=== PATIENT | female | born 1980 | race Caucasian/White ===

== ENCOUNTER 2017-12-26 06:11 | Day surgery (SDC) | payer MEDICAID ==
[~2017-12-26] VITALS: Ht 165.1 cm; Wt 116.8 kg
[2017-12-26] MEDS ORDERED: PIPERACILLIN/TAZO/PMX 3.375GM 50 ML ONE (06:26)
[2017-12-26] MEDS ORDERED: SODIUM CHLORIDE 0.9% 1,000 ML IV ONE (06:30)
[2017-12-26] MEDS ORDERED: PIPERACILLIN/TAZO/PMX 3.375GM 50 ML IV ONE (06:30)
[2017-12-26] MEDS ORDERED: morphine SULFATE 10 MG/ML, 1ML IVPush ONE ×2 (07:00→09:00)
[2017-12-26] MEDS ORDERED: MORPHINE SULFATE 4 MG/ML, 1ML ONE (07:10)
[2017-12-26] MEDS ORDERED: BUDE90AE IH (07:25)
[2017-12-26] MEDS ORDERED: METF500T4 PO (07:25)
[2017-12-26] MEDS ORDERED: ALBU18HF IH (07:25)
[2017-12-26] MEDS ORDERED: BUPR-86 PO (07:25)
[2017-12-26 07:49] LABS: HCG UR SG 1.032 (1.003-1.030)
[2017-12-26] MEDS ORDERED: FENTANYL PF 100 MCG/2ML ONE ×2 (08:59→11:28)
[2017-12-26] MEDS ORDERED: MIDAZOLAM 1 MG/ML, 2ML ONE (08:59)
[2017-12-26 09:17] VITALS: BP 120/77
[2017-12-26] MEDS ORDERED: ONDANSETRON 2MG/ML, 2ML ONE (10:27)
[2017-12-26] MEDS ORDERED: DEXAMETHASONE 4 MG/ML, 1ML ONE (10:27)
[2017-12-26] MEDS ORDERED: PROPOFOL 10 MG/ML, 20ML ONE (10:27)
[2017-12-26] MEDS ORDERED: SUCCINYLCHOLINE 20 MG/ML, 10ML ONE (10:27)
[2017-12-26] MEDS ORDERED: BUPIVACAINE/PF-EPI 0.5% 1:200K IM ONE (10:49)
[2017-12-26] MEDS ORDERED: ACETAMINOPHEN 650 MG/20.3 ML UDC ONE (11:17)
[2017-12-26] MEDS ORDERED: OXYcodone 5 MG/5 ML ORAL.SOL UDC ONE (11:17)
[2017-12-26] MEDS ORDERED: ALBUTEROL SULFATE 2.5 MG/3 ML NPPB PRN (11:30)
[2017-12-26] MEDS ORDERED: ACETAMINOPHEN 325 MG TABLET PO PRN (11:30)
[2017-12-26] MEDS ORDERED: HYDROmorphone 1 MG/ML, 1ML IV PRN (11:30)
[2017-12-26] MEDS ORDERED: PROMETHAZINE 12.5 MG SUPP PR PRN (11:30)
[2017-12-26] MEDS ORDERED: FENTANYL PF 100 MCG/2ML IV PRN (11:30)
[2017-12-26] MEDS ORDERED: LORazepam 2 MG/ML, 1ML IVPush PRN (11:30)
[2017-12-26] MEDS ORDERED: PROMETHAZINE 25 MG/ML, 1ML IV PRN (11:30)
[2017-12-26] MEDS ORDERED: hydrALAzine 20 MG/ML, 1ML IV PRN (11:30)
[2017-12-26] MEDS ORDERED: morphine SULFATE 10 MG/ML, 1ML IV PRN (11:30)
[2017-12-26] MEDS ORDERED: METOPROLOL 1 MG/ML, 5ML IV PRN (11:30)
[2017-12-26] MEDS ORDERED: OXYcodone 5 MG/5 ML ORAL.SOL UDC PO PRN (11:30)
[2017-12-26] MEDS ORDERED: HYDR-3240 PO (12:58)
[2017-12-26] MEDS ORDERED: LACTATED RINGERS 1,000 ML IV SCH (13:00)
[2017-12-26] MEDS ORDERED: HYDROcodone/APAP 5/325 TABLET PO PRN (13:00)
[2017-12-26] MEDS ORDERED: ZOLPIDEM 10MG TABLET PO PRN (13:00)
[2017-12-26] MEDS ORDERED: morphine SULFATE 10 MG/ML, 1ML IVPush PRN (13:30)
[2017-12-26] MEDS ORDERED: PNEUMOCOCCAL 23 VACCINE IM-VACC ONE (13:30)
[2017-12-26 13:43] VITALS: BP 136/85
[2017-12-26] MEDS ORDERED: PREGABALIN 75 MG CAPSULE PO SCH (21:00)
[2017-12-26] MEDS ORDERED: ATORVASTATIN 10 MG TABLET PO SCH (21:00)
[2017-12-27] MEDS ORDERED: ATENOLOL 50 MG TABLET PO SCH (06:00)
[2017-12-27] MEDS ORDERED: HYDROCHLOROTHIAZIDE 12.5 MG CAPSULE PO SCH (09:00)
[2017-12-27] MEDS ORDERED: QUINAPRIL 20MG TABLET PO SCH (09:00)
[2017-12-27] MEDS ORDERED: POTASSIUM CHLORIDE 10 MEQ TABLET.ER PO SCH (09:00)
== END 2017-12-26 15:58 ==
LOC: ED 06:44 → UNDOADMIN 06:45 → EDIP 06:45 → 4NOR 08:13 → EDIP 08:13 → OR 10:59 → UNDODISIN 15:58 → OR 15:58
PROVIDERS: ATTEND Surgery
DX: N61.1 Abscess of the breast and nipple (principal); E11.9 Type 2 diabetes mellitus without complications; E66.01 Morbid (severe) obesity due to excess calories; F17.210 Nicotine dependence, cigarettes, uncomplicated; Z90.49 Acquired absence of other specified parts of digestive tract; Z98.890 Other specified postprocedural states
CPT/HCPCS: 81025; 87070; 87075; 87205; 90732; 96361; 96365; 96375; J1100; J2250; J2405; J2543; J2704; J3010; J7613; J0330; J2270; J7030

== ENCOUNTER 2020-08-03 08:29 | Emergency (ER) | payer BC, MEDICAID, OTHER ==
[~2020-08-03] VITALS: Ht 167.6 cm; Wt 112.8 kg
[~2020-08-03 08:29] MED LIST: ALBU18HF IH; BUDE90AE IH; BUPR-86 PO; HYDR-3240 PO; METF500T17 PO
[2020-08-03] MEDS ORDERED: ONDANSETRON 2MG/ML, 2ML IVPush ONE (09:00)
[2020-08-03] MEDS ORDERED: MORPHINE SULFATE 4 MG/ML, 1ML IVPush ONE ×2 (09:00→11:00)
[2020-08-03] MEDS ORDERED: METHOCARBAMOL 1,000 MG in DEXTROSE 5% 100 ML IV ONE (09:00)
[2020-08-03] MEDS ORDERED: KETOROLAC 30 MG/1 ML IVPush ONE (09:00)
[2020-08-03 09:15] LABS: BASOPHILS % (AUTO) 1 % (0-1); EOSINOPHILS % (AUTO) 5 % (1-7); LYMPHOCYTES % (AUTO) 25 % (22-44); MEAN CORPUSCULAR HEMOGLOBIN 32.2 pg (27.0-34.8); MEAN CORPUSCULAR HGB CONC 34.2 g/dL (32.4-35.8); MEAN PLATELET VOLUME 6.9 fL (7.4-10.4); MONOCYTES % (AUTO) 7 % (2-9); NEUTROPHILS % (AUTO) 62 % (42-75); PLATELET COUNT 358 x10^3/uL (130-400); RED BLOOD COUNT 4.63 x10^6/uL (3.82-5.3)
[2020-08-03 09:16] LABS: MD NO
[2020-08-03 09:23] LABS: ANION GAP 8 mmol/L (5-15); CALCIUM 8.7 mg/dL (8.5-10.1); CHLORIDE 107 mmol/L (98-107)
[2020-08-03] MEDS ORDERED: MORPHINE SULFATE 4 MG/ML, 1ML ONE ×2 (09:52→10:52)
[2020-08-03] MEDS ORDERED: ONDANSETRON 2MG/ML, 2ML ONE (09:52)
[2020-08-03] MEDS ORDERED: KETOROLAC 30 MG/1 ML ONE (09:52)
[2020-08-03 10:18] LABS: MICROSCOPIC NOT IND
--- NOTE | 2020-08-03 10:18 | NUR ---
PT IN HOSPITAL GOWN. PT PLACED ON VITALS MONITORS. IV STARTED. PT MEDICATED PER EMAR. AT BEDSIDE. CALL LIGHT WITHIN REACH. WILL CONTINUE TO MONITOR.
--- NOTE | 2020-08-03 10:55 | NUR ---
PT STATED STILL HAVING PAIN. ERP AWARE, VERBAL ORDER GIVEN. WILL MEDICATE PER EMAR.
--- NOTE | 2020-08-03 10:55 | NUR ---
PT STATED SHE HAD TEMPORARY RELIEF OF PAIN WITH FIRST ADMINISTERED MEDS.
[2020-08-03 11:56] VITALS: BP 117/73
== END 2020-08-03 11:58 | disposition home or self-care (01) ==
LOC: ED 09:00
DX: M54.5 Low back pain (principal); R10.2 Pelvic and perineal pain; R10.30 Lower abdominal pain, unspecified; F17.210 Nicotine dependence, cigarettes, uncomplicated; J45.909 Unspecified asthma, uncomplicated; Z90.89 Acquired absence of other organs
CPT/HCPCS: 36415; 80048; 81003; 85025; 96365; 96366; 96375; 96376; 99284; 99406; J1885; J2270; J2405; J2800

== ENCOUNTER 2020-08-10 08:59 | Emergency (ER) | payer BC ==
[~2020-08-10] VITALS: Ht 167.6 cm; Wt 111.3 kg
[2020-08-10 09:52] LABS: MICROSCOPIC AUTO
[2020-08-10] MEDS ORDERED: SODIUM CHLORIDE FLUSH 10ML SYR IVF ONE (10:00)
[2020-08-10] MEDS ORDERED: ONDANSETRON 2MG/ML, 2ML IVPush ONE (10:00)
[2020-08-10] MEDS ORDERED: KETOROLAC 30 MG/1 ML ONE (10:00)
[2020-08-10] MEDS ORDERED: ONDANSETRON 2MG/ML, 2ML ONE (10:00)
[2020-08-10] MEDS ORDERED: KETOROLAC 30 MG/1 ML IVPush ONE (10:00)
[2020-08-10 10:39] LABS: ALBUMIN 3.8 g/dL (3.4-5.0); ANION GAP 7 mmol/L (5-15); CALCIUM 8.5 mg/dL (8.5-10.1); CHLORIDE 108 mmol/L (98-107)
[2020-08-10 10:45] LABS: ALANINE AMINOTRANSFERASE 32 U/L (12-78); ALKALINE PHOSPHATASE 63 U/L (45-117); BILIRUBIN,TOTAL 0.4 mg/dL (0.2-1.0); CREATININE 0.78 mg/dL (0.55-1.02); TOTAL PROTEIN 7.4 g/dL (6.4-8.2)
[2020-08-10 11:04] LABS: BASOPHILS % (AUTO) 1 % (0-1); EOSINOPHILS % (AUTO) 5 % (1-7); LYMPHOCYTES % (AUTO) 28 % (22-44); MEAN CORPUSCULAR HEMOGLOBIN 32.2 pg (27.0-34.8); MEAN CORPUSCULAR HGB CONC 34.1 g/dL (32.4-35.8); MEAN PLATELET VOLUME 7.3 fL (7.4-10.4); MONOCYTES % (AUTO) 7 % (2-9); NEUTROPHILS % (AUTO) 60 % (42-75); PLATELET COUNT 334 x10^3/uL (130-400); RED BLOOD COUNT 4.66 x10^6/uL (3.82-5.3); RED CELL DISTRIBUTION WIDTH 13.1 % (9.6-15.2)
[2020-08-10 11:07] LABS: MD NO
[2020-08-10] MEDS ORDERED: OMNIPAQUE 350 MG/ML, 100ML BOTTLE ONE (11:12)
[2020-08-10 11:40] VITALS: BP 121/56
== END 2020-08-10 12:35 | disposition home or self-care (01) ==
LOC: ED 09:20
DX: M54.5 Low back pain (principal); M79.604 Pain in right leg; R11.2 Nausea with vomiting, unspecified; E11.9 Type 2 diabetes mellitus without complications; Z90.49 Acquired absence of other specified parts of digestive tract
CPT/HCPCS: 36415; 74177; 80053; 81001; 84703; 85025; 87086; 96374; 96375; 99285; J1885; J2405; Q9967